=== PATIENT | male | born 1950 | race Caucasian/White ===

== ENCOUNTER 2022-08-21 05:02 | Observation (INO) ==
--- NOTE | 2022-07-26 14:06 | PAT Medication Instructions ---
Medication Instructions Date of Service July 26, 2022 Home Medications aspirin 81 mg capsule 81 mg PO QAM azelastine 205.5 mcg (0.15 %) nasal spray 2 spray intranasal DAILY finasteride 5 mg tablet 5 mg PO QAM latanoprost 0.005 % eye drops 1 drp ophthalmic (eye) PM meloxicam 15 mg tablet 15 mg PO QAM multivitamin 1 tab PO QAM rosuvastatin 20 mg tablet 20 mg PO QAM ASK your surgeon for instructions meloxicam 15 mg tablet 15 mg PO QAM DO NOT take the morning of surgery multivitamin 1 tab PO QAM Take morning of surgery With a small sip of water, OTHERWISE NOTHING TO EAT OR DRINK AFTER MIDNIGHT: aspirin 81 mg capsule 81 mg PO QAM (continue as normal unless told otherwise by surgeon) azelastine 205.5 mcg (0.15 %) nasal spray 2 spray intranasal DAILY finasteride 5 mg tablet 5 mg PO QAM rosuvastatin 20 mg tablet 20 mg PO QAM Take evening before surgery latanoprost 0.005 % eye drops 1 drp ophthalmic (eye) PM Other Notes If you have any questions please call us at [phone] or [phone] or [phone] or [phone]
--- NOTE | 2022-08-02 14:47 | Anesthesiology Consultation ---
Date of Service August 02, 2022 Assessment & Plan (1) Encounter for pre-operative examination: Chart Review Chart Review: Acceptable Risk for Surgery and Patient seen in Pre Admission Testing Pt currently scheduled as 23 hours observation. If surgeon decides to change patient to Same Day Joint, patient would be acceptable risk for TKA, pending patient is motivated, has good support and surgeon's office completes [facility] Day [facility] Program preop requirements. Per PAT appt on 08/02/22, patient denies any recent travel or large group activities. Pt is vaccinated for Covid. Will leave to surgeon's discretion if preop Covid testing needed. Educated on importance of using Covid precautions one week prior to surgery Teaching & Discussion Pre-Anesthesia Teaching/Discussion Notes: Instructed NPO after midnight before surgery,except medications with 15 cc of water. Medication instructions provided according to the PAT guidelines. History Surgery Operation Date: 08/21/22 07:15 Proposed Procedures p Right Total Knee Arthroplasty - Geoff Abebe MD Height/Weight Height: 5 ft 11 in Weight: 101.2 kg Allergies Allergy/AdvReac Type Severity Reaction Status Date / Time oxycodone Allergy Severe SHORT OF Unverified 07/26/22 10:04 BREATH PER PT Medications Home Medications Medication Instructions Recorded Confirmed Last Taken aspirin 81 mg capsule 81 mg PO QAM 07/26/22 07/26/22 Unknown azelastine 205.5 mcg (0.15 %) 2 spray intranasal DAILY 07/26/22 07/26/22 Unknown nasal spray finasteride 5 mg tablet 5 mg PO QAM 07/26/22 07/26/22 Unknown latanoprost 0.005 % eye drops 1 drp ophthalmic (eye) PM 07/26/22 07/26/22 Unk nown meloxicam 15 mg tablet 15 mg PO QAM 07/26/22 07/26/22 Unknown multivitamin 1 tab PO QAM 07/26/22 07/26/22 Unknown rosuvastatin 20 mg tablet 20 mg PO QAM 07/26/22 07/26/22 Unknown Past Medical History Medical History Enlarged prostate BPH per patient - controlled with Finasteride Hearing loss Bilaterally - no hearing aids needed HLD (hyperlipidemia) Prediabetes Sleep apnea BiPAP Slow to wake up after anesthesia Spinal stenosis Lumbar area Exercise / Class Metabolic Activity II 4-5 Yardwork/Stairs/Walk up hill (one flight of stairs- no chest pain or SOB ) Past Family History Family History Other No family history of adverse response to anesthesia Past Surgical History Surgical History History of colonoscopy History of left knee replacement History of shoulder surgery Rt Past Anesthesia History No Hx of Anesthesia Complications (with exception to slow to wake - no reintubation or ICU stay ) and No Family Hx of Anesthesia Complications History of PONV No Hx of PONV and No Hx of Motion Sickness Social History Smoking Status: Never smoker Do You Dip or Chew Tobacco: No Hx Alcohol Use: No Hx Substance Use: No substance use type: does not use Review of Systems Patient denies chest pain, shortness of breath, dyspnea on exertion, reflux, cough, wheezing, palpitations. No hx of seizures, stroke, [place]. No hx of blood clots or blood transfusions Physical Exam Vital Signs VITALS BP 131/62 P 72 TEMP 98.5 SP02 97% RESP 16 Constitutional no acute distress ENMT Mouth: no TMJ clicking Thyromental Distance: > or= 3.5 Finger Breadths (3.5) Mallampati Class: II Crowns to molars and side teeth Neck + limited neck extension Respiratory normal respiratory effort; no respiratory distress Auscultation: lungs clear to auscultation bilaterally; no wheezes Cardiovascular Rate/Rhythm: regular rate and regular rhythm Heart Sounds: no murmur Vessels: no carotid bruit Occ extra beat Musculoskeletal Spine: no pain with cervical ROM Extremities: extremities normal to inspection Psychiatric Orientation: alert Lab Results Anesthesia Preop Results Results Anesthesia Widget: WBC 5.68 K/ul (4.8-10.8) 08/02/22 Hgb 14.4 g/dl (14.0-18.0) 08/02/22 Hct 40.6 % (40.1-51.0) 08/02/22 Plt 185 K/uL (130-400) 08/02/22 Na 139 mmol/L (136-145) 08/02/22 K 3.8 mmol/L (3.5-5.1) 08/02/22 Cl 104 mmol/L (98-107) 08/02/22 CO2 27 mmol/L (21-32) 08/02/22 BUN 27 mg/dl (6-23) H 08/02/22 Creat 0.96 mg/dl (0.6-1.4) 08/02/22 Glucose Level 199 mg/dl (70-99(Fasting)) H 08/02/22 PT 10.5 Seconds (9.0-12.0) 08/02/22 PTT 24.4 Seconds (21.0-31.0) 08/02/22 INR 1.0 (0.9-1.1) 08/02/22 HA1c 6.1 % (4.5-5.6) H 08/02/22 Urine Color Yellow 08/02/22 Urine Appearance Clear (Clear) 08/02/22 Urine pH 6.0 (4.5-7.5) 08/02/22 Urine Specific [place] 1.019 (1.000-1.030) 08/02/22 Urine Protein Negative (Negative) 08/02/22 Urine Glucose (UA) Negative (Negative) 08/02/22 Urine Ketones Negative (Negative) 08/02/22 Urine Blood Negative (Negative) 08/02/22 Urine Nitrite Negative (Negative) 08/02/22 Urine Bilirubin Negative (Negative) 08/02/22 Urine Urobilinogen Negative (Negative) 08/02/22 Urine Leukocyte Esterase Negative (Negative) 08/02/22 Blood Type A Negative 08/02/22 Antibody Screen NEGATIVE 08/02/22 Testing Electrocardiogram Date: 08/02/22 Findings: + no change from (Jul 21, 2015 per cardio ) SR with PACs at 77bpm Otherwise normal EKG per cardio. Chest X-Ray Date: 08/02/22 Findings: + NAD FINDINGS: Cardiac silhouette is enlarged. Eventration of the right hemidiaphragm. Chronic interstitial coarsening of the lung bases. No pneumothorax, pleural effusion, airspace consolidation or overt pulmonary edema. Degenerative changes of the shoulders and spine. COVID-19 Risk Screen Screening Information COVID-19 Screen Date: 08/02/22 Exposure 21 Days Family/Household +COVID Last 21 Days: No Exposure 10 Days Any COVID Exposure Last 10 Days: No Symptoms Last 10 Days Experienced COVID Sx Last 10 Days: No + COVID 0-90 Days COVID + in Last 0-90 Days: No Risk Plan COVID Risk Plan: No Risk Identified Patient Education COVID Preop Screening Education Complete: Yes
--- NOTE | 2022-08-20 10:07 | History & Physical Report ---
Date of Service August 20, 2022 Assessment & Plan (1) Primary osteoarthritis of right knee: Plan: Patient with end-stage medial compartment osteoarthritis. Treatment options discussed with the patient. He like to proceed with surgical intervention. Risks, benefits and alternatives to surgery including but not limited to infection, DVT, pain, stiffness, need for revision surgery, damage to blood vessels, damage to nerves, PE, , were discussed with the patient and they wish to proceed. Plan on right total knee arthroplasty at [facility] with Dr. Abebe on August 21. We will plan on aspirin 81 mg twice daily for 1 month for postop DVT prophylaxis. Plan on outpatient physical therapy. All questions answered. Patient will follow-up postop. History of Present Illness Chief Complaint: Right knee pain Primary Care Provider: NO PCP 72-year-old male with past medical history significant for BPH, high cholesterol, prediabetes, WENDY who presents with ongoing right knee pain. Pain is interfering with his daily activities. Patient has failed conservative measures and would like to proceed with surgical intervention. Patient denies headaches, sweats, fevers, chills, double vision, blurred vision, cough, sore throat, dysphagia, chest pain, sob, wheezing, n/v/d/c, numbness, tingling, fatigue, urinary symptoms, mood disorders. ROS positive for right knee pain and stiffness. Allergies Allergy/AdvReac Type Severity Reaction Status Date / Time oxycodone Allergy Severe SHORT OF Unverified 07/26/22 10:04 BREATH PER PT Home Medications Medication Instructions Recorded Confirmed Type aspirin 81 mg capsule 81 mg PO QAM 07/26/22 07/26/22 History azelastine 205.5 mcg (0.15 %) 2 spray intranasal DAILY 07/26/22 07/26/22 History nasal spray finasteride 5 mg tablet 5 mg PO QAM 07/26/22 07/26/22 History latanoprost 0.005 % eye drops 1 drp ophthalmic (eye) PM 07/26/22 07/26/22 History meloxicam 15 mg tablet 15 mg PO QAM 07/26/22 07/26/22 History multivitamin 1 tab PO QAM 07/26/22 07/26/22 History rosuvastatin 20 mg tablet 20 mg PO QAM 07/26/22 07/26/22 History Past Med/Surg History Medical History (Updated 08/20/22 @ 10:05 by Ki Stearns PA-C) Enlarged prostate BPH per patient - controlled with Finasteride Hearing loss Bilaterally - no hearing aids needed HLD (hyperlipidemia) Obesity Prediabetes Sleep apnea BiPAP Slow to wake up after anesthesia Spinal stenosis Lumbar area Surgical History History of colonoscopy History of left knee replacement History of shoulder surgery Rt Family History Other No family history of adverse response to anesthesia Social History Smoking Status: Never smoker Second Hand Exposure: Yes (as a child); Hx Alcohol Use: No Hx Substance Use: No Preferred Language: Brazilian Communication Ability: Effective Cook Cashier Food Prep Required: No Beliefs That Will Affect Care: None Current Living Situation: Spouse Feels Safe at Home: Yes Assistive Devices: Glasses Review of Systems All systems reviewed & are unremarkable except as noted in HPI & below Physical Exam Constitutional: well developed and well nourished; no acute distress Eyes: PERRL, conjunctivae normal, anicteric sclerae ENMT: external ear and nose normal, oropharynx normal Neck: trachea midline, no thyromegaly Respiratory: normal respiratory effort, lungs clear to auscultation Cardiovascular: RRR, no murmur, no edema Musculoskeletal: Right knee: Varus alignment. Tenderness medial joint line. Positive Justine's. Stable valgus varus stress test. Range of motion is 0 to 135 degrees. Skin: no rashes, warm and dry Neurologic: patellar DTR's 2+ bilat, sensation intact Psychiatric: A+Ox3, euthymic affect Results & Data ([place]) Diagnostic Findings Right knee radiographs demonstrate significant joint space near medial compartment, [id number] on flexion view. There is peritubular osteophyte formation. He has more mild arthritic changes lateral patellofemoral compartments.
[2022-08-21] MEDS ORDERED: TRANEXAMIC ACID 1,000 MG **IV Intra-op IV SCH (06:00)
[2022-08-21] MEDS ORDERED: ceFAZolin 2000MG 2,000 MG/15 ML SYR IV SCH (06:00)
[2022-08-21] MEDS ORDERED: FAMOTIDINE 20 MG TAB PO SCH (06:00)
[2022-08-21] MEDS ORDERED: ACETAMINOPHEN 500 MG TAB PO SCH (06:00)
[2022-08-21] MEDS ORDERED: METOCLOPRAMIDE HCL 10 MG TABLET PO SCH (06:00)
[2022-08-21] MEDS ORDERED: TRANEXAMIC ACID 1,000 MG **IV Pre-op IV SCH (06:00)
[2022-08-21] MEDS ORDERED: ROPIVACAINE 0.5% HCL/PF 150 MG, BUPIVACAINE 0.75% MPF 20 ML, EPINEPHrine 30MG/30ML (OR ... INSTIL SCH (06:00)
[2022-08-21] MEDS ORDERED: GABAPENTIN 300 MG CAP PO SCH (06:00)
[2022-08-21] MEDS ORDERED: dexAMETHasone 4 MG TAB PO SCH (06:00)
[2022-08-21] MEDS ORDERED: CeleBREX 200 MG CAP PO SCH (06:00)
[2022-08-21] MEDS ORDERED: LR 500ML BOLUS, THEN 15ML/HR IV SCH (06:00)
[2022-08-21] MEDS ORDERED: EPINEPHrine INJ 1 MG/ML AMP ONE (06:29)
[2022-08-21] MEDS ORDERED: BUPIVACAINE 0.5 % 5 MG/1 ML PF 10ML VIAL ONE (06:30)
[2022-08-21] MEDS ORDERED: ROPIVACAINE 0.5% 5 MG/ML 30 ML VIAL ONE (06:30)
[2022-08-21] MEDS ORDERED: MIDAZOLAM HCL 1 MG/ML 2ML VIAL ONE (07:04)
[2022-08-21] MEDS ORDERED: PROPOFOL IV EMULSION 10 MG/ML 20 ML VIAL IV ONE ×2 (07:05→09:40)
[2022-08-21] MEDS ORDERED: ORTHO JOINT ANESTHETIC ONE (07:08)
--- NOTE | 2022-08-21 07:11 | History & Physical Bridge Note ---
Date of Service August 21, 2022 History & Physical Bridge Note I have examined the patient, reviewed the History & Physical and in the interval since the performance of the History & Physical I have noted the following changes of clinical significance: no changes noted
[2022-08-21] MEDS ORDERED: ATROPINE SULFATE 0.1 MG/ML 10ML SYR IV PRN (07:14)
[2022-08-21] MEDS ORDERED: ONDANSETRON INJ 2 MG/ML 2 ML VIAL IV PRN ×2 (07:14→11:00)
[2022-08-21] MEDS ORDERED: ePHEDrine sulfate 50 MG/ML AMP IV PRN (07:14)
[2022-08-21] MEDS ORDERED: LABETALOL HCL IV 5 MG/ML 20ML IV PRN (07:14)
[2022-08-21] MEDS ORDERED: PHENYLEPHRINE 100MCG/ML 5ML SYR IV PRN (07:14)
[2022-08-21] MEDS ORDERED: fentaNYL citrate 100 MCG/2 ML VIAL IV PRN (07:14)
[2022-08-21] MEDS ORDERED: MEPERIDINE HCL 25 MG/ML CARP/VIAL IV PRN (07:14)
--- NOTE | 2022-08-21 09:31 | Operative Report ---
Post Operative Report Pre & Post Diagnosis Preop diagnosis: End-stage osteoarthritis right knee Postop diagnosis: End-stage osteoarthritis right knee Operation Date: 08/21/22 07:15 <No data on this case meets the specified criteria> I identified the patient and participated in the time-out.: Yes Procedure Operation Date: 08/21/22 07:15 <No data on this case meets the specified criteria> Right total knee arthroplasty, jt and Acticoat superficial wound VAC Surgeon Geoff Abebe MD [place] Nico PATRICK Estimated Blood Loss 5 Findings Consistent with Post-Op Diagnosis Specimens Bone cuts Drains 2 Hemovac Anesthesia Type MAC Spinal Regional Complications none Disposition Disposition: Recovery Room Indications 72-year-old male with a chronic progressive osteoarthritis in his right knee. He had previous left knee replacement in the past did well with that. Presents for right knee replacement at this time. Radiographs demonstrate is a varus knee [id number] medial compartment and some moderate patellofemoral OA. Description of Procedure Patient taken to the operating room the size under spinal MAC regional block anesthesia. Patient was placed supine on the operating table. A pneumatic tourniquet was placed about the right upper thigh. The right lower extremity was prepped and draped in sterile fashion. Knee exam demonstrated varus knee with mild varus with no pseudolaxity no effusion about a 5 degree flexion contracture with full range of motion into flexion. The leg was elevated exsanguinated with an Esmarch bandage and pneumatic tourniquet was raised to 300 millimeters of mercury. Skin incised sharply in longitudinal fashion. Subcutaneous flaps elevated. Incision was made through the medial retinaculum extending up in the mid third of the quadriceps tendon and down to the medial tibial tubercle. Intra-articular findings demonstrated medial compartment osteoarthritis [id number] with a complex medial meniscus tear and grade III chondromalacia patellofemoral joint. The Syncurityn total knee arthroplasty system was used. To expose the knee the infrapatellar fat pad was resected. The meniscal remnants and cruciate ligaments were resected. The anterior fat pad over the femur in the area of the anterior flange of the femoral component was resected. Lateral synovial bands release. The femur was exposed. An intramedullary drill hole was made into the canal. A guide zachariah was placed. Distal femoral cutting guide was adjusted to resect a 5 degree valgus cut with 8 millimeters distal femur resected. The knee was extended and a subperiosteal peel lateral release was performed around the patella. Patella width was measured and width was reproduced using a freehand cut technique and a 36 patella component. The 3 drill holes were made and the excess lateral facet was beveled off to prevent any impingement. Attention was taken back to the femur which was exposed with retractors and the femoral sizing guide was pinned in position. The drill holes were placed in 3 of external rotation to match epicondylar axis. Femur sized for a 6 component. The 4-in-1 cutting block was placed and then the anterior posterior and chamfer cuts are made. The tibia was then subluxed. The external tibial cutting guide was just to make a perpendicular cut to the long axis of the tibia below the most deficient bone loss side. A lamina public speaker was used and the flexion extension gaps were balanced. This required some medial posterior medial release. All posterior osteophytes removed. All meniscal remnants were resected. The tibia exposed and the trial tibial component size 5 was externally rotated in line with the tibial tubercle and pinned in position. The punch for stem was used. The notch cutting device was centered appropriately and the femoral notch cut was made. The femoral trial was inserted. Trial tibial inserts were placed and size 9 gave balanced ligaments through flexion and extension. Patella tracking was assessed. The patella tracked centrally. The trial components were then removed and the orthomix anesthetic cocktail was injected per protocol. The knee was then copiously irrigated with pulsatile lavage saline solution. Final components were then cemented with Simplex cement. Final components were 6 posterior stabilized right triathlon femoral component, 5 tibial universal base plate, 9 mm posterior stabilized polyethylene insert, 36 mm polyethylene symmetrical patella. After the cement cured the Betadine soak was used for 3 minutes. Further pulsatile lavage irrigation was then performed and 2 Hemovac drains were brought out laterally. The quadriceps tendon and medial retinaculum were closed with figure of 8 #1 Vicryl sutures. The knee was taken through full range of motion and the repair was secure. Knee range of motion was 0 through 135 degrees. The subcutaneous tissues were closed with 2-0 Vicryl sutures. Skin was closed with marce. Jt and Acticoat superficial wound VAC were applied. The patient tolerated the procedure well. Nico PATRICK was my physician assistant professor surgical technology who participated as first aid trainer and was involved in all aspects of the procedure including patient positioning prepping and draping,leg positioning ,soft tissue retraction and instrument management and participated in the closing and will participate in postoperative care of the patient. The patient tolerated the procedure well. I attest to the content of the Intraoperative Record and any orders documented therein. Any exceptions are noted below.
--- NOTE | 2022-08-21 10:26 | XRay Report ---
XR knee RT 1 or 2V routine HISTORY: 72 years-old Male Surgical Post Op right knee total joint arthroplasty COMPARISON: None TECHNIQUE: 2 views the right knee FINDINGS: Right knee total joint arthroplasty with patellar resurfacing. Anterior midline skin marce are note d along with expected postoperative soft tissue swelling with deep tissue air and surgical drainage c atheter. No acute fracture or malalignment. Arterial calcifications. IMPRESSION: Total joint arthroplasty with expected postoperative changes. ACT 112: Negative or not required by law. The above report was generated using voice recognition software. It may contain grammatical, syntax o r spelling errors. Electronically signed by: Dheeraj Hoffman M.D. 08/21/2022 10:25 AM
--- NOTE | 2022-08-21 10:36 | Anesthesiology Progress Note ---
Date of Service August 21, 2022 Anesthesia Post Procedure Vital Signs Vital Signs: Temp Pulse Pulse Resp BP Pulse Ox O2 Del Method 08/21/22 10:30 56 L 16 136/69 96 Room Air 08/21/22 10:20 59 L 12 117/76 98 Oxymask 08/21/22 10:10 36.5 C 73 18 134/61 97 Oxymask 08/21/22 05:26 37.1 C 61 20 170/86 H 96 Room Air O2 Flow Rate 08/21/22 10:30 08/21/22 10:20 5 08/21/22 10:10 5 08/21/22 05:26 Transfer of Care Handoff Completed per policy Notes Mental Status: alert / awake / arousable Patient Amnestic to Procedure: Yes Nausea / Vomiting: adequately controlled Pain: adequately controlled Airway Patency, RR, SpO2: stable & adequate BP & HR: stable & adequate Hydration State: stable & adequate Neuraxial Anesthesia: was administered and sensory block is resolving Anesthetic Complications: no major complications apparent and Pt Satisfied with anesthetic care
[2022-08-21] MEDS ORDERED: HYDROCODONE/ACETAMOPHEN 5/325MG TAB PO PRN (11:00)
[2022-08-21] MEDS ORDERED: MAGNESIUM HYDROXIDE SUSP 30 ML UDC PO PRN (11:00)
[2022-08-21] MEDS ORDERED: bisacodyL 10 MG SUPP PR PRN (11:00)
[2022-08-21] MEDS ORDERED: HYDROmorphone INJ 0.5 MG/0.5 ML SYR IV PRN (11:00)
[2022-08-21] MEDS ORDERED: NALOXONE HCL 0.4 MG/1 ML VIAL/CARP IV PRN (11:00)
[2022-08-21] MEDS ORDERED: METOCLOPRAMIDE HCL INJ 5 MG/ML 2 ML VIAL IV PRN (11:00)
--- NOTE | 2022-08-21 11:43 | Hospitalist Consultation ---
Date of Consultation August 21, 2022 Assessment & Plan (1) Primary osteoarthritis of right knee: POD #0 - right TKR - Pain control, PT/OT, DVT prophylaxis per primary service - Labs in AM - minimal EBL, monitor for post-op anemia - Encourage incentive spirometry - Bowel regimen to prevent constipation (2) Lower abdominal pain: May be secondary to urinary retention - if persistent discomfort post-urination, check post-void residual. If no residual and persistent discomfort, check KUB (3) Sleep apnea: Order written for pt to use own BiPAP. Family to bring from home. Per outpatient records, settings are 23/06 b/u 12 (4) Enlarged prostate: Continue finasteride Monitor for urinary retention (5) Dyslipidemia: Continue outpatient statin. (6) Prediabetes: Last A1c in May 2022 was 6.0 Plan Pt seen and reviewed with collaborating physician, Dr. Jones. Plan of care discussed and as outlined above. Thank you for this consultation. We will continue to follow this patient with you. A member of the [facility] Hospitalist team is available 26/02 via [employer]. Please don't hesitate to reach out with questions. Jackelyn Ann PA-C Supervising Physician Co-Signing Physician Notes Patient is a 72-year-old male with history of BPH, obstructive sleep apnea, dyslipidemia and other medical problems was seen and examined postoperatively after having right total knee arthroplasty by . Patient states having urinary retention postoperatively. He denies any chest pain, shortness of breath, dizziness, nausea. Chart reviewed. On exam patient is moderately built and nourished, no apparent distress, normocephalic atraumatic, EOMI, normal br eath sounds, clear to auscultation, S1-S2, no murmur, no pedal edema, abdomen soft, mild suprapubic pressure, normal bowel sounds, alert, awake, oriented, grossly no focal deficits, right knee surgical site in dressing. Patient is admitted for postop medical management. Urinary retention likely situational in setting of BPH. Continue Proscar. We will add Flomax. Bladder scan as needed. Will consider catheter placement if continues to retain urine. Continue BiPAP at bedtime for obstructive sleep apnea. PT OT as able. Bowel regimen to prevent constipation. Incentive spirometry. I personally reviewed the record. Patient is interviewed and examined at bedside. Patient's care is coordinated with Rajwinder Ann PA-C. Please refer to the documentation above for details of patient's presentation and for discussion of other issues. History of Present Illness Reason for Consultation: Post-operative medical management Requesting Physician: Dr. Geoff Abebe Attending Physician: Geoff Abebe MD History of Present Illness This is a 72 y/o male with a PMH of osteoarthritis, s/p left TKR, BPH, WNEDY on BiPAP, multinodular thyroid, dyslipidemia, and prediabetes who underwent right TKR today by Dr. Abebe and for whom we have been consulted to assist with post-operative medical management. Pt has a history of prediabetes with last A1c on 03/13/22 at 6.0, which was improved from 6.2 the year prior. He also has a history of WENDY for which he uses BiPAP nightly - his family will bring for him to use while inpatient. Currently, his only complaint is mild lower abdominal pain - points to area over his bladder. He has not urinated since earlier this morning. He has a hx of BPH for which he takes finasteride - did take this morning. Last BM was yesterday. No nausea or vomiting. No knee pain at present - regaining sensation in his distal LE. Able to move toes bilaterally. Denies chest pain, dyspnea, ANDRE, dizziness, visual changes. Mild sore throat/dry mouth. Allergies Allergy/AdvReac Type Severity Reaction Status Date / Time oxycodone Allergy Severe SHORT OF Verified 08/21/22 05:34 BREATH PER PT Home Medications Medication Instructions Recorded Confirmed Type aspirin 81 mg capsule 81 mg PO QAM 07/26/22 08/21/22 History azelastine 205.5 mcg (0.15 %) 2 spray intranasal DAILY 07/26/22 08/21/22 History nasal spray finasteride 5 mg tablet 5 mg PO QAM 07/26/22 08/21/22 History latanoprost 0.005 % eye drops 1 drp ophthalmic (eye) PM 07/26/22 08/21/22 History meloxicam 15 mg tablet 15 mg PO QAM 07/26/22 08/21/22 History multivitamin 1 tab PO QAM 07/26/22 08/21/22 History rosuvastatin 20 mg tablet 20 mg PO QAM 07/26/22 08/21/22 History Patient History Medical History Dyslipidemia Enlarged prostate BPH per patient - controlled with Finasteride Hearing loss Bilaterally - no hearing aids needed Left knee DJD Multinodular thyroid Obesity Prediabetes Sleep apnea BiPAP Slow to wake up after anesthesia Spinal stenosis Lumbar area Surgical History History of colonoscopy History of left knee replacement History of prostate biopsy History of shoulder surgery Rt Family History Other No family history of adverse response to anesthesia Social History Smoking Status: Never smoker Second Hand Exposure: Yes (as a child); Do You Dip or Chew Tobacco: No; Hx Alcohol Use: No Hx Substance Use: No Preferred Language: [place] Communication Ability: Effective Online Media Director Required: No Beliefs That Will Affect Care: None Current Living Situation: Spouse Feels Safe at Home: Yes Safety Concerns: Feels Safe At This Time Assistive Devices: Glasses Review of Systems Review of Systems: All systems reviewed & are unremarkable except as noted in HPI & below Constitutional: no fever, no chills and no sweats Eyes: no diplopia and no worsening vision Ear, Nose, Mouth, Throat: + dry mouth and + sore throat Respiratory: no cough, no dyspnea and no wheezing Cardiovascular: no chest pain and no palpitations Gastrointestinal: + abdominal pain; no nausea and no vomiting Genitourinary: no dysuria or no hematuria Musculoskeletal: no back pain and no neck pain Integumentary: no rash and no yellowing of the skin Neurologic: no dizziness and no headache(s) Psychiatric: no depression and no anxiety Physical Exam Constitutional: well developed and well nourished; no acute distress Eyes: + anicteric sclerae Neck: trachea midline Respiratory: no respiratory distress and no labored breathing Auscultation: lungs clear to auscultation bilaterally; no rales, no rhonchi and no wheezes Cardiovascular: Rate/Rhythm: regular rate and regular rhythm Heart Sounds: no murmur Vessels: dorsalis pedis pulses present and radial pulses present Extremities: no pedal edema Gastrointestinal (Abdomen): Inspection/Auscultation: normal bowel sounds; abdomen not distended Percussion/Palpation: + abdomen tender (mild suprapubic) and abdomen soft Musculoskeletal: Head/Neck/Chest: normocephalic, head atraumatic and neck supple right knee with dressing C/D/I, drain in place moving toes bilaterally Skin: no jaundice Neurologic: moves all extremities; no focal motor deficits and not confused Psychiatric: A+Ox3, euthymic affect Results & Data Results & Data ([facility]) Vital Signs (Past 12 Hours) Vital Signs Temp Pulse Pulse Resp BP Pulse Ox O2 Del Method 08/21/22 11:10 36.6 C 61 18 133/83 94 Room Air 08/21/22 10:40 36.2 C L 57 L 16 128/82 95 Room Air 08/21/22 10:30 56 L 16 136/69 96 Room Air 08/21/22 10:20 59 L 12 117/76 98 Oxymask 08/21/22 10:10 36.5 C 73 18 134/61 97 Oxymask 08/21/22 05:26 37.1 C 61 20 170/86 H 96 Room Air O2 Flow Rate 08/21/22 11:10 08/21/22 10:40 08/21/22 10:30 08/21/22 10:20 5 08/21/22 10:10 5 08/21/22 05:26 Laboratory Results 08/21/22 Unknown SARS-CoV-2, RNA, NAAT NEGATIVE Medications Administered Sodium Chloride (Nss 1000ml) 1,000 mls @ 100 mls/hr IV .Q10H NEL Stop: 08/22/22 06:00 Last Admin: 08/21/22 11:45 Dose: 100 mls/hr Documented By: SMM Discontinued Medications Acetaminophen (Acetaminophen 500 Mg Tab) 1,000 mg PO PREOP NEL Stop: 08/21/22 18:00 Last Admin: 08/21/22 05:49 Dose: 1,000 mg Documented By: MG Celecoxib (Celebrex 200 Mg Cap) 200 mg PO PREOP NEL Stop: 08/21/22 18:00 Last Admin: 08/21/22 05:49 Dose: 200 mg Documented By: MG Dexamethasone (Dexamethasone 4 Mg Tab) 8 mg PO PREOP NEL Stop: 08/21/22 18:00 Last Admin: 08/21/22 05:49 Dose: 8 mg Documented By: MG Famotidine (Famotidine 20 Mg Tab) 20 mg PO PREOP NEL Stop: 08/21/22 18:00 Last Admin: 08/21/22 05:49 Dose: 20 mg Documented By: MG Gabapentin (Gabapentin 300 Mg Cap) 300 mg PO PREOP NEL Stop: 08/21/22 18:00 Last Admin: 08/21/22 05:50 Dose: 300 mg Documented By: MG Lactated Ringer's (Lr) 1,000 mls @ 15 mls/hr IV .Q24H NEL Stop: 08/21/22 18:00 Last Infusion: 08/21/22 07:31 Dose: 0 mls/hr Documented By: Admin: 08/21/22 05:50 Dose: 15 mls/hr Documented By: MG Cefazolin Sodium (Ancef 2000mg) 2,000 mg in 15 mls @ 3.75 mls/min IV PREOP [facility]; Protocol Stop: 08/21/22 18:00 Last Admin: 08/21/22 11:45 Dose: Not Given Documented By: EMEKA Tranexamic Acid (Tranexamic Acid / 0.7% Nacl) 1,000 mg in 100 mls @ 600 mls/hr IV TODAY@0600 [facility] Stop: 08/21/22 18:00 Last Infusion: 08/21/22 07:31 Dose: 0 mls/hr Documented By: Admin: 08/21/22 07:20 Dose: 600 mls/hr Documented By: MG Tranexamic Acid (Tranexamic Acid / 0.7% Nacl) 1,000 mg in 100 mls @ 600 mls/hr IV TODAY@0600 [facility] Stop: 08/21/22 18:00 Last Infusion: 08/21/22 11:44 Dose: 0 mls/hr Documented By: Admin: 08/21/22 09:31 Dose: 600 mls/hr Documented By: ARLETTE Ropivacaine 150 mg/Bupivacaine HCl 20 ml/Epinephrine HCl 0.15 mg/Ketorolac Tromethamine 30 mg/Dexamethasone 4 mg/ Ketamine HCl 10 mg/ Clonidine HCl 100 mcg/ Sodium Chloride 88.35 mls @ 0 mls/hr INSTIL TODAY@0600 [facility]; Protocol Stop: 08/21/22 06:01 Last Admin: 08/21/22 09:14 Dose: 93.35 mls/hr Documented By: ECHO Metoclopramide HCl (Metoclopramide Hcl 10 Mg Tablet) 10 mg PO PREOP NEL Stop: 08/21/22 18:00 Last Admin: 08/21/22 05:50 Dose: 10 mg Documented By: Miscellaneous (Ortho Joint Anesthetic ) Confirm Administered Dose 1 each .ROUTE .STK-MED ONE Stop: 08/21/22 07:09 Last Admin: 08/21/22 09:13 Dose: Not Given Documented By: SOPHIA
[2022-08-21] MEDS: SODIUM CHLORIDE 0.9% 1000ML 1,000 ML IV SCH (11:45)
[2022-08-21] MEDS ORDERED: TAMSULOSIN HCL 0.4 MG CAP PO ONE (13:45)
[2022-08-21] MEDS ORDERED: ACETAMINOPHEN 1,000 MG/100 ML VIAL IV PRN (14:59)
[2022-08-21] MEDS ORDERED: traMADol HCL 50 MG TABLET PO PRN (15:01)
--- NOTE | 2022-08-21 15:37 | Communication Note ---
Date of Service: August 21, 2022 Given allergies to oxycodone, discussed with patient regarding pain management. Will try to manage with IV Tylenol, Celebrex, Lidocaine patch and Cold Compress. Will consider IV Toradol PRN if ok with surgery. If pain remains uncontrollable, patient agreeable to try tramadol as well. Advised him to report any symptoms with its use. RN was informed as well.
[2022-08-21] MEDS: LIDOCAINE 5% 1 PATCH TD SCH (17:12)
[2022-08-21] MEDS: ceFAZolin 2000MG 2,000 MG/15 ML SYR IV SCH (17:12)
[2022-08-21] MEDS: CeleBREX 200 MG CAP PO SCH (20:23)
[2022-08-21] MEDS: ASPIRIN 81 MG ECTAB PO SCH (20:24)
[2022-08-21] MEDS: DOCUSATE SODIUM 100 MG CAP PO SCH (20:25)
[2022-08-21] MEDS ORDERED: SENNA 8.6 MG TAB PO SCH (21:00)
[2022-08-21] MEDS ORDERED: LATANOPROST 0.005% OP SOLN 2.5 ML BTL OP SCH (21:00)
[2022-08-22] MEDS: ceFAZolin 2000MG 2,000 MG/15 ML SYR IV SCH (00:25)
[2022-08-22] MEDS: SODIUM CHLORIDE 0.9% 1000ML 1,000 ML IV SCH (02:26)
[2022-08-22 06:40] LABS: Hemoglobin 11.7 g/dl (14.0-18.0); Mean Corpuscular Hemoglobin 33.7 pg (25.0-34.0); Mean Corpuscular Hgb Conc 35.5 g/dL (32.0-36.0); Mean Corpuscular Volume 95.1 fL (80.0-100.0); Mean Platelet Volume 11.3 fL (9.4-12.4); Platelet Count 169 K/uL (130-400); RDW Coefficient of Variation 11.8 % (11.5-14.5); RDW Standard Deviation 40.6 fL (36.4-46.3); Red Blood Count 3.47 M/uL (4.63-6.08); White Blood Count 15.11 K/ul (4.8-10.8)
[2022-08-22 07:12] LABS: BUN Creatinine Ratio 28.7 (10-20); Calcium 8.6 mg/dl (8.5-10.1); Creatinine Clr Calc Pharmacy 78.8 ml/min; Est GFR (African American) 85.1 ml/min; Est GFR (Non-African American) 73.4 ml/min
--- NOTE | 2022-08-22 08:17 | Orthopedic Progress Note ---
Date of Service August 22, 2022 Assessment & Plan (1) Primary osteoarthritis of right knee: Plan: Postop day 1 status post right total knee arthroplasty PT/OT protocols. Weightbearing as tolerated. DVT prophylaxis-aspirin p.o. twice daily, Nevin, CARLOS nelson. Pain management-patient currently on tramadol, acetaminophen, and Celebrex. Patient unsure of what he had as far as pain control for his last total knee replacement however records indicate he had been ordered MS Contin and as well as [place] in the past. Currently no need for higher level of narcotic at this time. Consider Toradol if patient has increased pain levels. DC planning-patient is planning on outpatient PT upon discharge. Admission and Anticipated Discharge Date Admission Date: August 21, 2022 Subjective Postop day 1 Patient sitting up in bed awake and alert. No complaints this morning. Pain appears to be controlled. Denies shortness of breath, chest pain, lightheadedness. Patient hoping to go home today. Dr. Abebe present during exam. Physical Exam Physical Exam: Dressings are clean, dry, and intact. Calves are soft nontender. Neurovascular intact. Toes are mobile. He has good dorsiflexion and plantarflexion of the right knee. Hemovac drainage was 75 cc from this AM. Results & Data ([facility]) Vital Signs (Past 12 Hours) Vital Signs Temp Pulse Pulse Resp BP Pulse Ox O2 Del Method 08/22/22 07:26 36.5 C 65 18 145/85 H 95 Nasal Cannula 08/22/22 03:32 36.5 C 72 20 129/69 96 Room Air 08/21/22 22:50 37 C 76 20 170/63 H 96 CPAP Laboratory Results Laboratory Results WBC 15.11 K/ul (4.8-10.8) H 08/22/22 06:08 RBC 3.47 M/uL (4.63-6.08) L 08/22/22 06:08 Hgb 11.7 g/dl (14.0-18.0) L 08/22/22 06:08 Hct 33.0 % (40.1-51.0) L 08/22/22 06:08 MCV 95.1 fL (80.0-100.0) 08/22/22 06:08 MCH 33.7 pg (25.0-34.0) 08/22/22 06:08 MCHC 35.5 g/dL (32.0-36.0) 08/22/22 06:08 RDW Std Deviation 40.6 fL (36.4-46.3) 08/22/22 06:08 RDW Coeff of Mai 11.8 % (11.5-14.5) 08/22/22 06:08 Plt Count 169 K/uL (130-400) 08/22/22 06:08 MPV 11.3 fL (9.4-12.4) 08/22/22 06:08 Sodium 139 mmol/L (136-145) 08/22/22 06:08 Potassium 4.0 mmol/L (3.5-5.1) 08/22/22 06:08 Chloride 108 mmol/L (98-107) H 08/22/22 06:08 Carbon Dioxide 26 mmol/L (21-32) 08/22/22 06:08 Anion Gap 5 (3-11) 08/22/22 06:08 BUN 29 mg/dl (6-23) H 08/22/22 06:08 Creatinine 1.01 mg/dl (0.6-1.4) 08/22/22 06:08 Est Cr Clr Drug Dosing 78.8 ml/min 08/22/22 06:08 Est GFR ( Amer) 85.1 ml/min 08/22/22 06:08 Est GFR (Non-Af Amer) 73.4 ml/min 08/22/22 06:08 BUN/Creatinine Ratio 28.7 (10-20) H 08/22/22 06:08 Glucose 154 mg/dl (70-99(Fasting)) H 08/22/22 06:08 Calcium 8.6 mg/dl (8.5-10.1) 08/22/22 06:08 SARS-CoV-2, RNA, NAAT NEGATIVE (NEGATIVE) 08/21/22 Unknown Impressions Knee X-Ray 08/21/22 10:12 XR knee RT 1 or 2V routine HISTORY: 72 years-old Male Surgical Post Op right knee total joint arthroplasty COMPARISON: None TECHNIQUE: 2 views the right knee FINDINGS: Right knee total joint arthroplasty with patellar resurfacing. Anterior midline skin marce are noted along with expected postoperative soft tissue swelling with deep tissue air and surgical drainage catheter. No acute fracture or malalignment. Arterial calcifications. IMPRESSION: Total joint arthroplasty with expected postoperative changes. ACT 112: Negative or not required by law. The above report was generated using voice recognition software. It may contain grammatical, syntax or spelling errors. Electronically signed by: Dheeraj Hoffman M.D. 08/21/2022 10:25 AM
[2022-08-22] MEDS: ASPIRIN 81 MG ECTAB PO SCH (08:51)
[2022-08-22] MEDS: DOCUSATE SODIUM 100 MG CAP PO SCH (08:51)
[2022-08-22] MEDS: CeleBREX 200 MG CAP PO SCH (08:52)
[2022-08-22] MEDS ORDERED: FINASTERIDE 5 MG TAB PO SCH (09:00)
[2022-08-22] MEDS ORDERED: NON-FORMULARY MEDICATION (Multivitamin Tablet) PO SCH (09:00)
[2022-08-22] MEDS ORDERED: AZELASTINE HCL 0.1% NASAL 200 SPRAYS/27,400 MCG BTL SCH (09:00)
[2022-08-22] MEDS ORDERED: MULTIVITAMIN TAB PO SCH (09:00)
[2022-08-22] MEDS ORDERED: ROSUVASTATIN CALCIUM 20 MG TAB PO SCH (09:00)
[2022-08-22] MEDS ORDERED: TAMSULOSIN HCL 0.4 MG CAP PO SCH (09:00)
[2022-08-22] MEDS: LIDOCAINE 5% 1 PATCH TD SCH (09:19)
--- NOTE | 2022-08-22 13:33 | Hospitalist Progress Note ---
Date of Service August 22, 2022 Assessment & Plan (1) Primary osteoarthritis of right knee: Plan: POD #1 - right TKR - Pain control, PT/OT, DVT prophylaxis per primary service - Labs in AM - minimal EBL; however drain with 550ml - hgb 11.7, pre op 14.4 - Encourage incentive spirometry - Bowel regimen to prevent constipation Acute blood loss anemia as expected surgical drain output 550ml likely dilutional component as well Elevated blood pressure reading 145/85, also reading of SBPS in 170s on 08/21 may be pain related not on any anti hypertensives, will continue to monitor (2) Lower abdominal pain: Plan: resolved after passed urine and moved bowels (3) Sleep apnea: Plan: Order written for pt to use own BiPAP. Family to bring from home. Per outpatient records, settings are 23/06 b/u 12 (4) Enlarged prostate: Plan: Continue finasteride Monitor for urinary retention (5) Dyslipidemia: Plan: Continue statin (6) Prediabetes: Plan: Last A1c in May 2022 was 6.0 no need for further monitoring Dispo: per ortho, possible d/c today or tomorrow PCP: Emili FULL CODE Pt was seen and examined in collaboration with Dr. Jones, please see addendum A total of 35 minutes were spent with greater than 50% of that time face to face with the patient, personally reviewing all current laboratories, imaging studies, past medication reconciliation, outpatient chart review, and discussion with specialists to collaborate care for the patient with attending. Please see attending documentation for corrections and/or additions. Admission and Anticipated Discharge Date Admission Date: August 21, 2022 Supervising Physician Co-Signing Physician Notes Patient is seen and examined at bedside. Denies any significant pain at surgical site right knee. Urinary retention resolved. Denies any chest pain, shortness of breath, dizziness, nausea, abdominal pain. Eager to get discharged. On exam patient is moderately built and nourished, no apparent distress, normocephalic atraumatic, EOMI, normal breath sounds, clear to auscultation, S1-S2, no murmur, no pedal edema, abdomen soft, mild suprapubic pressure, normal bowel sounds, alert, awake, oriented, grossly no focal deficits, right knee surgical site in dressing. Patient is consulted for postop medical management. Urinary retention likely situational in setting of BPH. Continue Proscar. added Flomax. Bladder scan as needed. Advised to follow-up with PCP, urology as outpatient for further recommendations. Continue BiPAP at bedtime for obstructive sleep apnea. PT OT as able. Bowel regimen to prevent constipation. Incentive spirometry. I personally reviewed the record. Patient is interviewed and examined at bedside. Patient's care is coordinated with Marisela Villegas PA-C. Please refer to the documentation above for details of patient's presentation and for discussion of other issues. Subjective Patient was seen and examined in room 322-1. Follow up R tka. Overall he feels well. Denies f/c/s, chest pain, sob,n/v/d. Is unsure if going home today, "depends on my drain." He is tolerating diet well. Review of Systems Review of Systems: All systems reviewed & are unremarkable except as noted in HPI & below Physical Exam Physical Exam: Gen: WD/WN, M, NAD, A&O x3 HEENT: Normocephalic, atraumatic, conjunctivae moist, sclerae anicteric, mucous membranes moist. Lung: Clear to Auscultation bilaterally, no wheezes/rales/rhonchi Heart: Regular rate, regular rhythm, no murmurs, rubs, or gallops Abdomen: Soft, NT, ND +BS x 4 Extremities: No edema, R knee TKA dressing CDI, hemovac with serosang drainage Skin: Warm, no rash, negative turgor. Results & Data Results & Data ([facility]) Vital Signs (Past 12 Hours) Vital Signs Temp Pulse Pulse Resp BP Pulse Ox O2 Del Method 08/22/22 07:26 36.5 C 65 18 145/85 H 95 Nasal Cannula 08/22/22 03:32 36.5 C 72 20 129/69 96 Room Air Laboratory Results Short CBC 08/22/22 Range/Units 06:08 WBC 15.11 H (4.8-10.8) K/ul Hgb 11.7 L (14.0-18.0) g/dl Hct 33.0 L (40.1-51.0) % Plt Count 169 (130-400) K/uL BMP 08/22/22 06:08 Sodium 139 Potassium 4.0 Chloride 108 H Carbon Dioxide 26 BUN 29 H Creatinine 1.01 Glucose 154 H Calcium 8.6 Medications Administered Current Inpatient Medications Aspirin (Aspirin 81 Mg Ectab) 81 mg PO BID [facility] Stop: 09/20/22 20:59 Last Admin: 08/22/22 08:51 Dose: 81 mg Azelastine HCl (Azelastine Hcl 0.1% Nasal 200 Sprays/27,400 Mcg Btl) 2 sprays NA DAILY [facility] Stop: 09/21/22 08:59 Last Admin: 08/22/22 08:52 Dose: 2 sprays Bisacodyl (Bisacodyl 10 Mg Supp) 10 mg GA DAILY PRN PRN Reason: Constipation Stop: 09/20/22 10:59 Celecoxib (Celebrex 200 Mg Cap) 200 mg PO BID [facility] Stop: 09/20/22 20:59 Last Admin: 08/22/22 08:52 Dose: 200 mg Docusate Sodium (Docusate Sodium 100 Mg Cap) 100 mg PO BID [facility] Stop: 09/20/22 20:59 Last Admin: 08/22/22 08:51 Dose: 100 mg Finasteride (Finasteride 5 Mg Tab) 5 mg PO QAM [facility] Stop: 09/21/22 08:59 Last Admin: 08/22/22 08:52 Dose: 5 mg Acetaminophen (Ofirmev) 1,000 mg in 100 mls @ 400 mls/hr IV Q8H PRN PRN Reason: Pain or Fever Stop: 08/24/22 14:58 Latanoprost (Latanoprost 0.005% Op Soln 2.5 Ml Btl) 1 drops OP PM [facility] Stop: 09/20/22 20:59 Last Admin: 08/21/22 20:25 Dose: 1 drops Lidocaine (Lidocaine 5% 1 Patch) 1 patch TD QAM [facility] Stop: 09/20/22 15:29 Last Admin: 08/22/22 09:19 Dose: Not Given Magnesium Hydroxide (Magnesium Hydroxide Susp 30 Ml Udc) 30 ml PO Q6H PRN PRN Reason: Constipation Stop: 09/20/22 10:59 Metoclopramide HCl (Metoclopramide Hcl Inj 5 Mg/Ml 2 Ml Vial) 10 mg IV Q6H PRN PRN Reason: Nausea And Vomiting Stop: 09/20/22 10:59 Miscellaneous (Remove Lidoderm Patch) 1 each N/A DAILY@2100 [facility] Stop: 09/20/22 20:59 Last Admin: 08/21/22 20:15 Dose: Not Given Multivitamins (Multivitamin Tab) [facility] [place]: 09/21/22 08:59 Last Admin: 08/22/22 08:52 Dose: 1 tab Naloxone HCl (Naloxone Hcl 0.4 Mg/1 Ml Vial/Carp) 0.1 mg IV Q5M PRN PRN Reason: Oversedation/Resp Depression Stop: 09/20/22 10:59 Ondansetron HCl (Ondansetron Inj 2 Mg/Ml 2 Ml Vial) 4 mg IV Q6H PRN PRN Reason: Nausea And Vomiting Stop: 09/20/22 10:59 Rosuvastatin Calcium (Rosuvastatin Calcium 20 Mg Tab) 20 mg PO [facility] Stop: 09/21/22 08:59 Last Admin: 08/22/22 08:52 Dose: 20 mg Sennosides (Senna 8.6 Mg Tab) 17.2 mg PO [facility] Stop: 09/20/22 20:59 Last Admin: 08/21/22 20:25 Dose: 17.2 mg Tamsulosin HCl (Tamsulosin Hcl 0.4 Mg Cap) 0.4 mg PO [facility] Stop: 09/21/22 08:59 Last Admin: 08/22/22 08:52 Dose: 0.4 mg Tramadol HCl (Tramadol Hcl 50 Mg Tablet) 50 mg PO Q4H PRN PRN Reason: Pain Stop: 09/20/22 15:00
--- NOTE | 2022-08-23 13:33 | Discharge Summary ---
Date of Service August 23, 2022 Admission HPI Per Admitting Provider 72-year-old male with past medical history significant for BPH, high cholesterol, prediabetes, WENDY who presents with ongoing right knee pain. Pain is interfering with his daily activities. Patient has failed conservative measures and would like to proceed with surgical intervention. Patient denies headaches, sweats, fevers, chills, double vision, blurred vision, cough, sore throat, dysphagia, chest pain, sob, wheezing, n/v/d/c, numbness, tingling, fatigue, urinary symptoms, mood disorders. ROS positive for right knee pain and stiffness. Admission Exam Per Admitting Provider Constitutional: well developed and well nourished; no acute distress Eyes: PERRL, conjunctivae normal, anicteric sclerae ENMT: external ear and nose normal, oropharynx normal Neck: trachea midline, no thyromegaly Respiratory: normal respiratory effort, lungs clear to auscultation Cardiovascular: RRR, no murmur, no edema Musculoskeletal: Right knee: Varus alignment. Tenderness medial joint line. Positive Justine's. Stable valgus varus stress test. Range of motion is 0 to 135 degrees. Skin: no rashes, warm and dry Neurologic: patellar DTR's 2+ bilat, sensation intact Psychiatric: A+Ox3, euthymic affect Principal Diagnosis Right knee osteoarthritis Discharge Exam Dressings are clean, dry, and intact. Calves are soft nontender. Neurovascular intact. Toes are mobile. He has good dorsiflexion and plantarflexion of the right knee. Hemovac drainage was 75 cc from this AM. Constitutional well developed and well nourished; no acute distress Discharge Data Allergies Allergy/AdvReac Type Severity Reaction Status Date / Time oxycodone Allergy Severe SHORT OF Verified 08/21/22 05:34 BREATH PER PT Consultations 08/16/22 12:30 Consult Hospitalist Routine Procedures Performed Operation Date: 08/21/22 07:15 Actual Procedures p Right Total Knee Arthroplasty, Cemented.(Right) - Geoff Abebe MD Ordered Studies 08/21/22 05:00 US - OR guided needle placemen Routine Hospital Course (1) Primary osteoarthritis of right knee: Postop day 1 status post right total knee arthroplasty PT/OT protocols. Weightbearing as tolerated. DVT prophylaxis-aspirin p.o. twice daily, SCDs, CARLOS nelson. Pain management-patient currently on tramadol, acetaminophen, and Celebrex. Patient unsure of what he had as far as pain control for his last total knee replacement however records indicate he had been ordered [facility] Contin and as well as [place] in the past. Currently no need for higher level of narcotic at this time. Consider Toradol if patient has increased pain levels. DC planning-patient is planning on outpatient PT upon discharge. Lab Results 08/21/22 08/22/22 08/22/22 Range/Units Unknown 06:08 06:08 WBC 15.11 H (4.8-10.8) K/ul RBC 3.47 L (4.63-6.08) M/uL Hgb 11.7 L (14.0-18.0) g/dl Hct 33.0 L (40.1-51.0) % MCV 95.1 (80.0-100.0) fL MCH 33.7 (25.0-34.0) pg MCHC 35.5 (32.0-36.0) g/dL RDW Std Deviation 40.6 (36.4-46.3) fL RDW Coeff of Mai 11.8 (11.5-14.5) % Plt Count 169 (130-400) K/uL MPV 11.3 (9.4-12.4) fL Sodium 139 (136-145) mmol/L Potassium 4.0 (3.5-5.1) mmol/L Chloride 108 H (98-107) mmol/L Carbon Dioxide 26 (21-32) mmol/L Anion Gap 5 (3-11) BUN 29 H (6-23) mg/dl Creatinine 1.01 (0.6-1.4) mg/dl Est Cr Clr Drug Dosing 78.8 ml/min Est GFR ( Amer) 85.1 ml/min Est GFR (Non-Af Amer) 73.4 ml/min BUN/Creatinine Ratio 28.7 H (10-20) Glucose 154 H (70-99(Fasting)) mg/dl Calcium 8.6 (8.5-10.1) mg/dl SARS-CoV-2, RNA, NAAT NEGATIVE (NEGATIVE) Total Time Total Time Spent Total Time Spent (In Minutes): 20 Discharge Plan Discharge Items Patient Disposition: Home - Self-Care Reason For Visit: Right Knee Osteoarthritis Discharge Diagnosis: Right knee osteoarthritis Activity: Per Instructions section Weightbearing: Right weightbearing Weightbearing Comment: As tolerated with walker Non-emergency contact: Surgeon Call non-emergency contact if: you have any medication questions, your pain is not controlled, your pain is concerning for you, you have a fever, your temperature is above 101, your wound has increased redness and your wound has increased drainage Follow-up/Referrals: Ulises Mock MD [Primary Care Provider] - eGoff Abebe MD [Surgeon] - (Follow-up with Dr. Abebe or his PA in 2 weeks for your first postoperative visit.) Diet: Regular Addtl Attending Provider Instructions: ACTIVITY RECOMMENDATIONS: SELF CARE INSTRUCTIONS AFTER TOTAL KNEE REPLACEMENT A. You may need to continue a physical therapy program after discharge from the hospital. There are several options available to you. Your doctor will assist you in selecting the best one for you. 1. An out-patient facility 2 to 3 times a week for therapy or home therapy. 2. Continue working on all exercises taught to you in the hospital. Your goals should be to increase bending of your knee to 90 degrees and beyond and to fully straighten your knee. B. You may progress at your own pace from walking with a walker or crutches to a cane; then to no assistive devices. C. Make walking a part of your daily routine. Be up as much as comfortable with rest periods throughout the day. Rest with leg elevation is very important. Use the ice wrap frequently for the first 3-4 weeks. D. There are no restrictions on activities. You may ride in a car, shop, participate in it support technician and all social activities. E. Wear the long elastic stockings (CARLOS hose) 20 hours a day for 2 weeks after surgery. They can be removed several times a day for laundering and for a bath. F. You may shower, no tub baths until cleared by your doctor. SPECIAL CARE INSTRUCTIONS: VERY IMPORTANT TO READ AND REVIEW A. There are a few signs you need to watch for after you are home. Call [facility] if you notice any of the followin. Increased severe knee pain. Some pain is expected especially when you exercise. 2. Increased swelling in your leg or knee; pain or swelling of the calf muscle in either lower leg. 3. Any fluid drainage from the incision. 4. Shortness of breath or chest pain. B. Please call [facility] at if you have any concerns or questions about your operation or recovery. The doctor or his nurse will return your call promptly. C. You must take antibiotics before dental work, bladder, bowel or other surgery. Your doctor will provide you with a permanent care to carry describing this precaution. IMPORTANT: * REMEMBER TO TAKE ASPIRIN, 81 MG, TWICE DAILY FOR 4 WEEKS UNLESS OTHERWISE DIRECTED. THIS IS YOUR BLOOD THINNER. * HIGH RISK PATIENTS MAY BE PRESCRIBED A STRONGER BLOOD THINNER. THIS WILL BE PROVIDED AT DISCHARGE. * CALL IF INCREASED PAIN, REDNESS, DRAINAGE OR FEVER GREATER THAT 101. * WEAR CARLOS HOSE 20 HOURS PER DAY FOR 2 WEEKS. This is a large suction dressing covering your incision. This will help pull any excess drainage from the wound and allow your incision to heal properly. You may shower with this if you can keep the unit outside of the shower. If any bleeding or leakage is noted please call your doctor's office. This will remain on your incision for 7 days and then should be removed. This can be done yourself or by the home nursing staff if applicable. The entire unit is disposable once removed. Once removed, keep incision clean and dry. If redness or drainage is noted, please call your surgeon. IF INCISION IS LEAKING THROUGH DRESSING, CALL THE OFFICE . FOLLOW UP VISIT: If appointment is not already scheduled: Please call [facility] to make a follow-up appointment for 2 weeks after your surgery at . Stand-Alone Forms: My [facility], Smoking Cessation Medications and DC Order Prescriptions: New celecoxib [Celebrex] 200 mg Capsule 200 mg PO BID 14 Days Qty: 28 0RF aspirin 81 mg Tablet,Delayed Release (Dr/Ec) 81 mg PO BID 30 Days Qty: 60 0RF tramadol 50 mg tablet 50 - 100 mg PO Q4H MDD 12 tabs PRN (Reason: pain) Qty: 36 0RF acetaminophen 500 mg capsule 1,000 mg PO Q8H 14 Days Qty: 84 0RF tamsulosin 0.4 mg Capsule 0.4 mg PO QAM Qty: 14 0RF Continued multivitamin Tablet 1 tab PO QAM latanoprost 0.005 % Drops 1 drp OPHTHALMIC (EYE) PM finasteride 5 mg Tablet 5 mg PO QAM rosuvastatin 20 mg Tablet 20 mg PO QAM azelastine 205.5 mcg (0.15 %) [place],Non-Aerosol 2 spray INTRANASAL DAILY Rx Instructions: administer into each nostril Discontinued meloxicam 15 mg Tablet 15 mg PO QAM aspirin 81 mg Capsule 81 mg PO QAM Discharge Orders: Discharge Order (Routine); Ordered 08/22/22 Ordered By: Praveen Orantes Admission Data Admit Date/Time: 08/21/22 10:12 Attending Provider: Geoff Abebe Admit Provider: Geoff Abebe Primary Care Provider: Ulises Mock Other Providers: Randolph Cardenas ; Manny Jones ; Marisela Villegas Other Interventions: Discharge Summary Assessment (RN) Last Done: 08/22/22 13:55
== END 2022-08-22 15:48 | disposition home or self-care (01) ==
LOC: 3E 05:02 → ASU 05:02